=== PATIENT | male | born 1955 | race Caucasian/White ===

== ENCOUNTER → 2019-12-31 | Day surgery (SDC) | payer MEDICARE, MEDICAID | LOC: MSO 13:03 | DX: E11.36 Type 2 diabetes mellitus with diabetic cataract (principal); H25.11 Age-related nuclear cataract, right eye; E78.00 Pure hypercholesterolemia, unspecified; I10 Essential (primary) hypertension; I25.2 Old myocardial infarction; Z86.73 Personal history of transient ischemic attack (TIA), and cerebral infarction without residual deficits; Z79.82 Long term (current) use of aspirin; Z95.810 Presence of automatic (implantable) cardiac defibrillator; Z79.02 Long term (current) use of antithrombotics/antiplatelets; Z79.4 Long term (current) use of insulin | CPT/HCPCS: 00142; J0171; J2250; V2632 ==